=== PATIENT | male | born 1940 | race Caucasian/White ===

== ENCOUNTER → 2021-10-17 | Day surgery (SDC) | payer MEDICARE, OTHER ==
[~2021-10-17] VITALS: Ht 180.3 cm; Wt 81.6 kg
[~2021-10-17] MED LIST: ASPIRIN EC81 MG PO; CERTAGEN1 EACH PO; CLARITIN10 MG PO; LIPITOR 10MG TA10 MG PO; NORVASC2.5 MG PO; OCUVITE ADULT1 EAC1 PO; REVATIO 20MG TA20 MG PO; TOPROL XL 25MG25 MG PO; VENTOLIN HFA IN18 GM INH
== END | disposition home or self-care (01) ==
LOC: FAS 12:39
DX: H26.493 Other secondary cataract, bilateral (principal); I25.10 Atherosclerotic heart disease of native coronary artery without angina pectoris; Z79.82 Long term (current) use of aspirin

== ENCOUNTER → 2021-11-14 | Day surgery (SDC) | payer MEDICARE, OTHER ==
[~2021-11-14] VITALS: Ht 180.3 cm; Wt 81.6 kg
== END | disposition home or self-care (01) ==
LOC: FAS 13:01
DX: H26.493 Other secondary cataract, bilateral (principal); I10 Essential (primary) hypertension